=== PATIENT | female | born 1935 | race Two or more races ===

== ENCOUNTER 2016-12-08 23:26 | Emergency (ER) | payer OTHER, MEDICAID ==
[~2016-12-08] VITALS: Ht 160 cm; Wt 77.1 kg
[2016-12-08] MEDS ORDERED: LISINOPRIL40 MG ORAL (23:45)
[2016-12-08] MEDS ORDERED: CARVEDILOL25 MG ORAL (23:45)
[2016-12-08] MEDS ORDERED: JANUVIA50 MG ORAL (23:45)
[2016-12-08] MEDS ORDERED: LEVOTHYROXINE100 MCG ORAL (23:45)
[2016-12-08] MEDS ORDERED: AMLODIPINE BESY10 MG ORAL (23:45)
[2016-12-08] MEDS ORDERED: METFORMIN HCL850 M1 ORAL (23:45)
[2016-12-08] MEDS ORDERED: LORAZEPAM1 MG ORAL (23:45)
[2016-12-08] MEDS ORDERED: GLIPIZIDE10 MG PO (23:45)
[2016-12-08] MEDS ORDERED: TRAMADOL HCL50 MG ORAL (23:52)
--- NOTE | 2016-12-08 23:52 | Emergency Room Report ---
History of Present Illness General Chief Complaint: Neck Pain Source: Patient, Family Member Present Illness HPI Is a 80-year-old female with history hypertension diabetes. She presents with chief complaint of neck pain for the last few days. Worse with movement. Mostly on the left neck and left shoulder area. Pain is sharp. Radiating. Occasional to the right side no nausea no vomiting. No fever chills but no trauma. No chest pain. No exertional component. No diaphoresis or shortness of breath. Allergies: Coded Allergies: No Known Allergies (Unverified , 12/08/16) Patient History Past Medical History: see triage record, old chart reviewed, DM, HTN Past Surgical History: other Pertinent Family History: none Social History: Denies: smoking Now: No Immunizations: other Reviewed Nursing Documentation: PMH: Agreed, PSxH: Agreed Nursing Documentation-PMH Hx Hypertension: Yes Hx Diabetes: Yes Review of Systems Eye: Denies: eye pain, blurred vision ENT: Denies: ear pain, nose congestion, throat swelling Respiratory: Denies: cough, shortness of breath Cardiovascular: Denies: chest pain, palpitations Gastrointestinal: Denies: abdominal pain, diarrhea, nausea, vomiting Musculoskeletal: Denies: back pain, joint pain Skin: Denies: rash Neurological: Denies: headache, numbness Endocrine: Denies: increased thirst, increased urine Hematologic/Lymphatic: Denies: easy bruising All Other Systems: negative except mentioned in HPI Physical Exam Vital Signs Date Time Temp Pulse Resp B/P (MAP) Pulse Ox O2 Delivery O2 Flow Rate FiO2 12/08/16 23:31 97.5 89 16 176/87 97 Room Air vitals with high blood pressure Sp02 EP Interpretation: reviewed, normal General Appearance: well appearing, no apparent distress, alert Head: normocephalic, atraumatic Eyes: bilateral eye PERRL, bilateral eye EOMI ENT: hearing grossly normal, normal pharynx Neck: full range of motion, supple, no meningismus, tender - Tenderness over the left trapezius proximally Respiratory: chest non-tender, lungs clear, normal breath sounds Cardiovascular #1: regular rate, rhythm, no murmur Gastrointestinal: normal bowel sounds, non tender, no mass, no organomegaly, no bruit, non-distended Musculoskeletal: back normal, gait/station normal, normal range of motion Psychiatric: mood/affect normal Skin: warm/dry Medical Decision Making Diagnostic Impression: Primary Impression: Neck pain Additional Impression: Hypertension Qualified Codes: I10 - Essential (primary) hypertension ER Course Patient with cervical strain and radiculopathy. No evidence of ACS, PE, dissection. No evidence of cauda equina syndrome, spinal epidural abscess or neoplastic process. Last Vital Signs Date Time Temp Pulse Resp B/P (MAP) Pulse Ox O2 Delivery O2 Flow Rate FiO2 12/08/16 23:31 97.5 89 16 176/87 97 Room Air Status: improved Disposition: HOME, SELF-CARE Condition: Stable Scripts Tramadol Hcl* (ULTRAM*) 50 Mg Tablet 50 MG ORAL BID Y for For Pain, #20 TAB 0 Refills Prov: JOSE SULLIVAN M.D. 12/08/16 Patient Instructions: NECK PAIN, No Trauma Additional Instructions: Followup with your Dr. in 7 days. Return if symptom worsen. JOSE SULLIVAN M.D. Dec 08, 2016 23:52
[2016-12-09] MEDS ORDERED: Morphine Sulfate 4mg/ml Inj IM ONE
[2016-12-09 00:05] VITALS: BP 176/87
== END 2016-12-09 00:56 | disposition home or self-care (01) ==
LOC: EMR 23:50
DX: S16.1XXA Strain of muscle, fascia and tendon at neck level, initial encounter (principal); X58.XXXA Exposure to other specified factors, initial encounter; Y92.89 Other specified places as the place of occurrence of the external cause; E11.9 Type 2 diabetes mellitus without complications
CPT/HCPCS: 96372; 99284; J2270